=== PATIENT | female | born 1930 | race Caucasian/White ===

== ENCOUNTER 2017-02-22 18:05 | Inpatient (IN) | payer OTHER, MEDICAID ==
[~2017-02-22] VITALS: Ht 170.2 cm; Wt 86.7 kg
[~2017-02-22 18:05] MED LIST: ASPI-231 PO; CALC-30 PO; CHOL10006 PO; CLOP75TA28 PO; DEXL60CA3 PO; FERR325T47 PO; INSU70IN9 SC; ISOS10TA45 PO; LATA0.00 EACHEYE; LEVO75TA6 PO; NYS15PW TOP; TRAM50TA2 PO
[2017-02-22 19:03] LABS: Basophils # (auto) 0 uL; Basophils % (auto) 0.3 % (0.0-2.0); CONDITION Y; Eosinophils # (auto) 0.1 uL; Eosinophils % (auto) 0.8 % (0.0-7.0); Hematocrit 35.7 % (36.0-46.0); Hemoglobin 11.9 g/dL (12.2-16.2); Lymphocytes # (auto) 3.4 uL; Mean Corpuscular Hemoglobin 29.4 pg (28.0-32.0); Mean Corpuscular Hgb Conc. 33.2 g/dL (32.0-36.0); Mean Corpuscular Volume 88.5 fL (80.0-100.0); Mean Platelet Volume 8.4 fL (7.4-10.4); Monocytes # (auto) 0.9 uL; Monocytes % (auto) 6.9 % (0.0-12.0); Neutrophils # (auto) 8.5 uL; Platelet Count (auto) 254 10^3/uL (140-450); Red Cell Distribution Width 16.7 % (11.6-16.0); White Blood Cell 12.9 10^3/uL (4.4-10.8)
[2017-02-22] MEDS ORDERED: SODIUM CHLORIDE 0.9% 1,000 ML IV ONE (19:33)
[2017-02-22 19:41] LABS: Chloride 116 mmol/L (98-107); Potassium 4.1 mmol/L (3.5-5.1); Sodium 142 mmol/L (136-145)
[2017-02-22 19:45] LABS: Albumin 3.1 g/dL (3.4-5.0); Anion Gap 12 (5-15); Aspartate Aminotransferase 44 U/L (15-37); BUN/Creatinine Ratio 15.6; Blood Urea Nitrogen 41 mg/dL (7-18); Calcium 8.1 mg/dL (8.5-10.1); Carbon Dioxide 14 mmol/L (21-32); GFR African American 22 mL/min; GFR Non-African American 18 mL/min; Glucose 164 mg/dL (74-106)
[2017-02-22] MEDS ORDERED: IPRATROPIUM BROM 0.5 MG/2.5ML INH SOL HHN ONE (19:45)
[2017-02-22] MEDS: LEVOFLOXACIN 500MG 100 ML IV ONE (19:45)
[2017-02-22] MEDS ORDERED: ALBUTEROL SULF 2.5 MG/0.5ML(0.5%) NEB SOLN HHN ONE (19:45)
[2017-02-22 19:47] LABS: Alkaline Phosphatase 129 U/L (45-117); Bilirubin, Total 0.6 mg/dL (0.2-1.0); Total Protein 6.9 g/dL (6.4-8.2)
[2017-02-22 20:13] LABS: B-Type Natriuretic Peptide 979.49 pg/mL (0-100)
[2017-02-22 20:19] LABS: Temperature: 23.1 C (20.0-25.0)
[2017-02-22 20:23] LABS: Allen Test Yes; Base Excess -10.9 mmol/L (-2.0-2.0); Blood 02Sat 93.8 % (96-100); Blood COHb 0.4 % (0.5-1.5); Blood MetHb 0.1 % (0.0-1.5); HCO3 12.6 mmol/L (22-26.0); HHb 6.2 % (0.0-5.0); MODE NASAL CANNULA; O2Hb 93.3 % (94.0-97.0); PCO2 22.6 mmHg (35.0-45.0); PCO2(T) 22.6 mmHg (35.0-45.0); PO2 78.6 mmHg (80.0-100.0); PO2(T) 78.6 mmHg (80.0-100.0); Sample Type Arterial; pH 7.364 (7.350-7.450)
[2017-02-22] MEDS ORDERED: LACTULOSE 20Gm/30ML SOLN PO PRN (22:15)
[2017-02-22] MEDS ORDERED: NITROGLYCERIN 0.4 MG SL TAB SL PRN (22:15)
[2017-02-22] MEDS ORDERED: ENOXAPARIN SOD 120 MG/0.8 ML SYRINGE SC ONE (22:15)
[2017-02-22] MEDS ORDERED: AZITHROMYCIN 500MG/D5W 250ML 250 ML IV ONE (22:15)
[2017-02-22] MEDS ORDERED: methylPREDNISolone SOD SUCC 40 MG/ML VL IV SCH (22:15)
[2017-02-22] MEDS ORDERED: MORPHINE SULF INJ 2 MG/ML SYRINGE 1ML IV PRN (22:15)
[2017-02-22] MEDS ORDERED: FUROSEMIDE 40 MG/4 ML VIAL IV ONE (22:15)
[2017-02-22] MEDS ORDERED: DEXTROSE (50%) 50ML SYRG IV PRN (22:30)
[2017-02-22] MEDS ORDERED: VANCOMYCIN PER PHARMACY 0 MG IV SCH (22:45)
[2017-02-22] MEDS ORDERED: VANCOMYCIN 1GM/250ML D5W 250 ML IV ONE (22:45)
[2017-02-22] MEDS: InsuLIN REG 1unit/0.01ml Soln (100units/ml) SC SCH (23:09)
[2017-02-22] MEDS: ACCU-CHEK COMFORT CURVE STRIP VI SCH (23:09)
[2017-02-22] MEDS ORDERED: diphenhdrAMINE HCL 50 MG/1 ML VL ONE (23:48)
[2017-02-23] MEDS ORDERED: FAMOTIDINE (10MG/ML) 2ML VL IV ONE
[2017-02-23] MEDS ORDERED: diphenhdrAMINE HCL 50 MG/1 ML VL IV ONE
[2017-02-23] MEDS: IPRATROPIUM BROM 0.5 MG/2.5ML INH SOL NEB SCH ×2 (02:05→06:04)
[2017-02-23] MEDS: ALBUTEROL SULF 2.5 MG/0.5ML(0.5%) NEB SOLN NEB SCH ×2 (02:05→06:04)
[2017-02-23 03:34] VITALS: BP 157/62
[2017-02-23] MEDS: InsuLIN REG 1unit/0.01ml Soln (100units/ml) SC SCH ×4 (06:00→23:28)
[2017-02-23] MEDS: ACCU-CHEK COMFORT CURVE STRIP VI SCH ×4 (06:00→23:19)
[2017-02-23 06:28] LABS: Basophils # (auto) 0 uL; Basophils % (auto) 0.1 % (0.0-2.0); CONDITION Y; Eosinophils # (auto) 0 uL; Hematocrit 35.2 % (36.0-46.0); Hemoglobin 11.5 g/dL (12.2-16.2); Lymphocytes % (auto) 8.8 % (10.0-50.0); Mean Corpuscular Hemoglobin 28.9 pg (28.0-32.0); Mean Corpuscular Hgb Conc. 32.6 g/dL (32.0-36.0); Mean Corpuscular Volume 88.8 fL (80.0-100.0); Mean Platelet Volume 8.7 fL (7.4-10.4); Monocytes # (auto) 0.1 uL; Monocytes % (auto) 0.9 % (0.0-12.0); Neutrophils # (auto) 9.9 uL; Neutrophils % (auto) 90.2 % (37.0-80.0); Platelet Count (auto) 236 10^3/uL (140-450); Red Cell Distribution Width 17.3 % (11.6-16.0); White Blood Cell 10.9 10^3/uL (4.4-10.8)
[2017-02-23] MEDS: LEVOTHYROXINE SODIUM 100 MCG TAB PO SCH (06:45)
[2017-02-23 06:53] LABS: Albumin 3.3 g/dL (3.4-5.0); BUN/Creatinine Ratio 14.8; Bilirubin, Total 0.6 mg/dL (0.2-1.0); Calcium 8.6 mg/dL (8.5-10.1); Total Protein 7.3 g/dL (6.4-8.2)
[2017-02-23 08:06] LABS: B-Type Natriuretic Peptide 1583.67 pg/mL (0-100)
[2017-02-23 08:11] LABS: Temperature: 24.5 C (20.0-25.0)
[2017-02-23] MEDS: FERROUS SULFATE 325 MG TAB PO SCH ×2 (08:30→17:16)
[2017-02-23] MEDS: PANTOPRAZOLE 40 MG/10 ML VIAL IV SCH (08:30)
[2017-02-23] MEDS: CLOPIDOGREL BISULFATE 75 MG TAB PO SCH (08:31)
[2017-02-23] MEDS: ASPirin 81 mg TAB PO SCH (08:31)
[2017-02-23] MEDS: METOPROLOL TARTRATE 25 MG TAB PO SCH ×2 (08:32→21:30)
[2017-02-23] MEDS: AZITHROMYCIN 500MG/D5W 250ML 250 ML IV SCH (08:32)
[2017-02-23] MEDS ORDERED: POTASSIUM CHL 20 Meq TABLET PO ONE (09:45)
[2017-02-23] MEDS ORDERED: FUROSEMIDE 100 MG/10ML VIAL IV ONE (09:45)
[2017-02-23] MEDS ORDERED: FUROSEMIDE 40 MG/4 ML VIAL IV SCH ×2 (10:00→22:00)
[2017-02-23] MEDS ORDERED: amLODIPine BESYLATE 5 MG TAB PO SCH (10:00)
[2017-02-23 15:01] VITALS: BP 153/79
[2017-02-23] MEDS ORDERED: FER325T PO (15:20)
[2017-02-23] MEDS ORDERED: INS7030I SC (15:25)
[2017-02-23] MEDS ORDERED: ISOS30TA4 PO (15:26)
[2017-02-23] MEDS ORDERED: TRAM50TA2 PO (15:27)
[2017-02-23] MEDS: FUROSEMIDE 40 MG/4 ML VIAL IV SCH (21:29)
[2017-02-23] MEDS: ATORVASTATIN 20 MG TAB PO SCH (21:29)
[2017-02-23 21:30] VITALS: BP 149/58
[2017-02-23] MEDS: ENOXAPARIN SOD 120 MG/0.8 ML SYRINGE SC SCH (23:19)
[2017-02-24 04:49] VITALS: BP 135/66
[2017-02-24] MEDS: FUROSEMIDE 40 MG/4 ML VIAL IV SCH ×2 (05:55→17:48)
[2017-02-24] MEDS: ACCU-CHEK COMFORT CURVE STRIP VI SCH ×4 (05:55→21:57)
[2017-02-24] MEDS: InsuLIN REG 1unit/0.01ml Soln (100units/ml) SC SCH ×4 (06:10→22:15)
[2017-02-24] MEDS: LEVOTHYROXINE SODIUM 100 MCG TAB PO SCH (06:10)
[2017-02-24 06:26] LABS: Basophils # (auto) 0 uL; Basophils % (auto) 0.2 % (0.0-2.0); CONDITION Y; Eosinophils # (auto) 0 uL; Eosinophils % (auto) 0.2 % (0.0-7.0); Hematocrit 32.6 % (36.0-46.0); Hemoglobin 10.8 g/dL (12.2-16.2); Lymphocytes # (auto) 2.8 uL; Lymphocytes % (auto) 16.2 % (10.0-50.0); Mean Corpuscular Hemoglobin 29.3 pg (28.0-32.0); Mean Corpuscular Volume 88.6 fL (80.0-100.0); Mean Platelet Volume 8.8 fL (7.4-10.4); Monocytes # (auto) 1.3 uL; Monocytes % (auto) 7.6 % (0.0-12.0); Neutrophils % (auto) 75.8 % (37.0-80.0); Platelet Count (auto) 240 10^3/uL (140-450); Red Cell Distribution Width 16.6 % (11.6-16.0); White Blood Cell 17.2 10^3/uL (4.4-10.8)
[2017-02-24 06:45] LABS: Calcium 8.3 mg/dL (8.5-10.1); Potassium 4.1 mmol/L (3.5-5.1)
[2017-02-24 06:48] LABS: Albumin 2.9 g/dL (3.4-5.0); BUN/Creatinine Ratio 15.5
[2017-02-24 06:50] LABS: Bilirubin, Total 0.5 mg/dL (0.2-1.0); Total Protein 6.4 g/dL (6.4-8.2)
[2017-02-24] MEDS: FERROUS SULFATE 325 MG TAB PO SCH ×2 (08:35→17:48)
[2017-02-24 09:00] VITALS: BP 138/69
[2017-02-24] MEDS: CLOPIDOGREL BISULFATE 75 MG TAB PO SCH (09:58)
[2017-02-24] MEDS: ASPirin 81 mg TAB PO SCH (09:58)
[2017-02-24] MEDS: METOPROLOL TARTRATE 25 MG TAB PO SCH ×2 (09:59→21:57)
[2017-02-24] MEDS: PANTOPRAZOLE 40 MG/10 ML VIAL IV SCH (09:59)
[2017-02-24] MEDS: AZITHROMYCIN 500MG/D5W 250ML 250 ML IV SCH (09:59)
[2017-02-24] MEDS ORDERED: DEXTROSE (50%) 50ML SYRG IV PRN (10:15)
[2017-02-24 13:20] VITALS: BP 138/69
[2017-02-24 16:58] VITALS: BP 141/63
[2017-02-24] MEDS: ATORVASTATIN 20 MG TAB PO SCH (21:57)
[2017-02-24 22:00] VITALS: BP 148/70
[2017-02-24] MEDS: ENOXAPARIN SOD 120 MG/0.8 ML SYRINGE SC SCH (23:32)
[2017-02-25 05:00] VITALS: BP 131/57
[2017-02-25] MEDS: LEVOTHYROXINE SODIUM 100 MCG TAB PO SCH (06:25)
[2017-02-25] MEDS: ACCU-CHEK COMFORT CURVE STRIP VI SCH ×4 (06:26→21:52)
[2017-02-25] MEDS: InsuLIN REG 1unit/0.01ml Soln (100units/ml) SC SCH ×4 (06:32→21:53)
[2017-02-25 06:34] LABS: Basophils # (auto) 0 uL; Basophils % (auto) 0.1 % (0.0-2.0); CONDITION Y; Eosinophils # (auto) 0.3 uL; Eosinophils % (auto) 2.2 % (0.0-7.0); Hematocrit 33.1 % (36.0-46.0); Hemoglobin 10.9 g/dL (12.2-16.2); Lymphocytes # (auto) 3.5 uL; Lymphocytes % (auto) 27.6 % (10.0-50.0); Mean Corpuscular Hemoglobin 29.4 pg (28.0-32.0); Mean Corpuscular Hgb Conc. 33.1 g/dL (32.0-36.0); Mean Corpuscular Volume 88.8 fL (80.0-100.0); Mean Platelet Volume 8.9 fL (7.4-10.4); Monocytes % (auto) 7.8 % (0.0-12.0); Neutrophils # (auto) 7.9 uL; Neutrophils % (auto) 62.3 % (37.0-80.0); Platelet Count (auto) 240 10^3/uL (140-450); Red Cell Distribution Width 16.7 % (11.6-16.0); White Blood Cell 12.7 10^3/uL (4.4-10.8)
[2017-02-25 06:58] LABS: Potassium 3.7 mmol/L (3.5-5.1)
[2017-02-25 07:09] LABS: BUN/Creatinine Ratio 17.9; Calcium 8.5 mg/dL (8.5-10.1)
[2017-02-25] MEDS: FUROSEMIDE 40 MG/4 ML VIAL IV SCH ×2 (07:16→18:29)
[2017-02-25] MEDS: FERROUS SULFATE 325 MG TAB PO SCH ×2 (08:31→18:29)
[2017-02-25 09:00] VITALS: BP 136/68
[2017-02-25] MEDS: CLOPIDOGREL BISULFATE 75 MG TAB PO SCH (10:01)
[2017-02-25] MEDS: ASPirin 81 mg TAB PO SCH (10:02)
[2017-02-25] MEDS: METOPROLOL TARTRATE 25 MG TAB PO SCH ×2 (10:02→21:51)
[2017-02-25] MEDS: PANTOPRAZOLE 40 MG/10 ML VIAL IV SCH (10:02)
[2017-02-25] MEDS: AZITHROMYCIN 500MG/D5W 250ML 250 ML IV SCH (10:03)
[2017-02-25 13:00] VITALS: BP 126/55
[2017-02-25 17:00] VITALS: BP 122/89
[2017-02-25] MEDS: ATORVASTATIN 20 MG TAB PO SCH (21:50)
[2017-02-25] MEDS: APIXABAN 2.5 MG TAB PO SCH (21:52)
[2017-02-25 22:00] VITALS: BP 155/64
[2017-02-26 05:00] VITALS: BP 130/61
[2017-02-26] MEDS: FUROSEMIDE 40 MG/4 ML VIAL IV SCH ×2 (06:26→18:18)
[2017-02-26] MEDS: LEVOTHYROXINE SODIUM 100 MCG TAB PO SCH (06:29)
[2017-02-26 06:40] LABS: Basophils # (auto) 0 uL; Basophils % (auto) 0.4 % (0.0-2.0); CONDITION Y; Eosinophils # (auto) 0.2 uL; Eosinophils % (auto) 2.7 % (0.0-7.0); Hematocrit 34.5 % (36.0-46.0); Hemoglobin 11.4 g/dL (12.2-16.2); Lymphocytes # (auto) 2.3 uL; Lymphocytes % (auto) 28.1 % (10.0-50.0); Mean Corpuscular Hemoglobin 29.1 pg (28.0-32.0); Mean Corpuscular Hgb Conc. 32.9 g/dL (32.0-36.0); Mean Corpuscular Volume 88.5 fL (80.0-100.0); Mean Platelet Volume 8.6 fL (7.4-10.4); Monocytes # (auto) 0.6 uL; Neutrophils # (auto) 4.9 uL; Neutrophils % (auto) 60.8 % (37.0-80.0); Platelet Count (auto) 249 10^3/uL (140-450); Red Cell Distribution Width 16.6 % (11.6-16.0); White Blood Cell 8.1 10^3/uL (4.4-10.8)
[2017-02-26 07:18] LABS: Potassium 3.4 mmol/L (3.5-5.1)
[2017-02-26 07:42] LABS: BUN/Creatinine Ratio 18.5; Calcium 8.5 mg/dL (8.5-10.1)
[2017-02-26] MEDS: InsuLIN REG 1unit/0.01ml Soln (100units/ml) SC SCH ×4 (07:53→21:35)
[2017-02-26] MEDS: ACCU-CHEK COMFORT CURVE STRIP VI SCH ×4 (07:53→21:35)
[2017-02-26 09:00] VITALS: BP 140/61
[2017-02-26] MEDS: ASPirin 81 mg TAB PO SCH (09:24)
[2017-02-26] MEDS: FERROUS SULFATE 325 MG TAB PO SCH ×2 (09:24→18:19)
[2017-02-26] MEDS: APIXABAN 2.5 MG TAB PO SCH ×2 (09:24→21:34)
[2017-02-26] MEDS: AZITHROMYCIN 500MG/D5W 250ML 250 ML IV SCH (09:24)
[2017-02-26] MEDS: PANTOPRAZOLE 40 MG/10 ML VIAL IV SCH (09:24)
[2017-02-26] MEDS: METOPROLOL TARTRATE 25 MG TAB PO SCH ×2 (09:25→21:34)
[2017-02-26 13:04] VITALS: BP 136/71
[2017-02-26 17:00] VITALS: BP 114/69
[2017-02-26] MEDS: ATORVASTATIN 20 MG TAB PO SCH (21:34)
[2017-02-26 21:41] VITALS: BP 150/66
[2017-02-27] MEDS: FUROSEMIDE 40 MG/4 ML VIAL IV SCH ×2 (05:54→18:26)
[2017-02-27 05:55] VITALS: BP 171/62
[2017-02-27] MEDS: InsuLIN REG 1unit/0.01ml Soln (100units/ml) SC SCH ×4 (06:27→22:09)
[2017-02-27] MEDS: ACCU-CHEK COMFORT CURVE STRIP VI SCH ×4 (06:27→22:10)
[2017-02-27] MEDS: LEVOTHYROXINE SODIUM 100 MCG TAB PO SCH (06:27)
[2017-02-27 06:59] LABS: Basophils # (auto) 0 uL; Basophils % (auto) 0.3 % (0.0-2.0); CONDITION Y; Eosinophils # (auto) 0.2 uL; Eosinophils % (auto) 2.4 % (0.0-7.0); Hematocrit 37.7 % (36.0-46.0); Hemoglobin 12.4 g/dL (12.2-16.2); Lymphocytes # (auto) 3.5 uL; Lymphocytes % (auto) 35.3 % (10.0-50.0); Mean Corpuscular Hemoglobin 28.9 pg (28.0-32.0); Mean Corpuscular Volume 87.7 fL (80.0-100.0); Monocytes % (auto) 10.1 % (0.0-12.0); Neutrophils # (auto) 5.1 uL; Neutrophils % (auto) 51.9 % (37.0-80.0); Platelet Count (auto) 274 10^3/uL (140-450); Red Cell Distribution Width 16.4 % (11.6-16.0); White Blood Cell 9.9 10^3/uL (4.4-10.8)
[2017-02-27 07:18] LABS: BUN/Creatinine Ratio 19.7; Calcium 8.7 mg/dL (8.5-10.1); Potassium 3.2 mmol/L (3.5-5.1)
[2017-02-27 08:56] VITALS: BP_SYST 75
[2017-02-27] MEDS: PANTOPRAZOLE 40 MG/10 ML VIAL IV SCH (10:14)
[2017-02-27] MEDS: ASPirin 81 mg TAB PO SCH (10:15)
[2017-02-27] MEDS: FERROUS SULFATE 325 MG TAB PO SCH ×2 (10:16→18:26)
[2017-02-27] MEDS: APIXABAN 2.5 MG TAB PO SCH ×2 (10:16→22:09)
[2017-02-27] MEDS: METOPROLOL TARTRATE 25 MG TAB PO SCH ×2 (10:16→22:09)
[2017-02-27 10:42] VITALS: BP 143/75
[2017-02-27 12:00] VITALS: BP 135/61
[2017-02-27 16:00] VITALS: BP 131/51
[2017-02-27 22:00] VITALS: BP 145/65
[2017-02-27] MEDS: ATORVASTATIN 20 MG TAB PO SCH (22:09)
[2017-02-28 05:30] VITALS: BP 154/71
[2017-02-28] MEDS: FUROSEMIDE 40 MG/4 ML VIAL IV SCH (06:14)
[2017-02-28] MEDS: LEVOTHYROXINE SODIUM 100 MCG TAB PO SCH (06:49)
[2017-02-28] MEDS: ACCU-CHEK COMFORT CURVE STRIP VI SCH ×2 (06:49→11:30)
[2017-02-28] MEDS: InsuLIN REG 1unit/0.01ml Soln (100units/ml) SC SCH ×2 (06:50→11:30)
[2017-02-28 07:55] VITALS: BP 158/60
[2017-02-28] MEDS: APIXABAN 2.5 MG TAB PO SCH (09:31)
[2017-02-28] MEDS: ASPirin 81 mg TAB PO SCH (09:31)
[2017-02-28] MEDS: FERROUS SULFATE 325 MG TAB PO SCH (09:31)
[2017-02-28] MEDS: PANTOPRAZOLE 40 MG/10 ML VIAL IV SCH (09:32)
[2017-02-28] MEDS: METOPROLOL TARTRATE 25 MG TAB PO SCH (09:37)
[2017-02-28 11:46] VITALS: BP_SYST 136; BP_SYST 147; BP_DIAS 58; BP_DIAS 86
== END 2017-02-28 16:45 | disposition home or self-care (01) | DRG 291 ==
LOC: EDBD 18:05 → ER 18:07 → TELE 18:08 → TELE-EAST 02-23 13:52
PROVIDERS: ADMIT Family Medicine; ATTEND Family Medicine
DX: I13.2 Hypertensive heart and chronic kidney disease with heart failure and with stage 5 chronic kidney disease, or end stage renal disease (principal); I50.33 Acute on chronic diastolic (congestive) heart failure; N17.9 Acute kidney failure, unspecified; E11.22 Type 2 diabetes mellitus with diabetic chronic kidney disease; E11.51 Type 2 diabetes mellitus with diabetic peripheral angiopathy without gangrene; I49.5 Sick sinus syndrome; N18.6 End stage renal disease; E11.65 Type 2 diabetes mellitus with hyperglycemia; E66.01 Morbid (severe) obesity due to excess calories; I07.1 Rheumatic tricuspid insufficiency; J44.9 Chronic obstructive pulmonary disease, unspecified; I25.10 Atherosclerotic heart disease of native coronary artery without angina pectoris; D63.8 Anemia in other chronic diseases classified elsewhere; E03.9 Hypothyroidism, unspecified; E78.5 Hyperlipidemia, unspecified; I48.91 Unspecified atrial fibrillation; Z82.49 Family history of ischemic heart disease and other diseases of the circulatory system; Z83.3 Family history of diabetes mellitus; Z95.0 Presence of cardiac pacemaker; Z98.61 Coronary angioplasty status; Z90.49 Acquired absence of other specified parts of digestive tract; Z90.710 Acquired absence of both cervix and uterus; Z98.49 Cataract extraction status, unspecified eye; Z88.1 Allergy status to other antibiotic agents; Z88.0 Allergy status to penicillin; Z88.7 Allergy status to serum and vaccine; Z88.8 Allergy status to other drugs, medicaments and biological substances; Z91.018 Allergy to other foods; Z68.29 Body mass index [BMI] 29.0-29.9, adult; Z79.82 Long term (current) use of aspirin; Z79.899 Other long term (current) drug therapy
CPT/HCPCS: 36415; 36600; 71010; 80048; 80053; 80061; 80202; 82805; 82962; 83036; 83605; 83880; 84484; 85025; 85379; 87040; 93005; 93306; 93970; 94640; 96361; 96365; 96366; 96368; 96375; 96376; 99291; C9113; J1815; J1956

== ENCOUNTER 2017-09-06 09:09 | Emergency (ER) | payer OTHER, MEDICAID ==
[~2017-09-06] VITALS: Ht 157.5 cm; Wt 70.3 kg
[~2017-09-06 09:09] MED LIST changes: -CLOP75TA28 PO; +FER325T PO; -FERR325T47 PO; +INS7030I SC; -INSU70IN9 SC; -ISOS10TA45 PO; +ISOS30TA4 PO; -LATA0.00 EACHEYE; +LATA0.0020 EACHEYE
[2017-09-06 10:12] LABS: Basophils # (auto) 0.1 uL; Basophils % (auto) 0.5 % (0.0-2.0); Eosinophils # (auto) 0.1 uL; Eosinophils % (auto) 1.4 % (0.0-7.0); Hematocrit 38.1 % (36.0-46.0); Hemoglobin 12.6 g/dL (12.2-16.2); Lymphocytes # (auto) 3.4 uL; Lymphocytes % (auto) 31.8 % (10.0-50.0); Mean Corpuscular Hgb Conc. 33.1 g/dL (32.0-36.0); Mean Corpuscular Volume 90.6 fL (80.0-100.0); Monocytes # (auto) 0.9 uL; Monocytes % (auto) 8.5 % (0.0-12.0); Neutrophils # (auto) 6.3 uL; Neutrophils % (auto) 57.8 % (37.0-80.0); Platelet Count (auto) 197 10^3/uL (140-450); Red Blood Cells 4.21 10^6/uL (4.0-5.20); Red Cell Distribution Width 16.3 % (11.8-14.3); White Blood Cell 10.8 10^3/uL (4.4-10.8)
[2017-09-06 10:25] LABS: INR 1.08 (0.9-1.15); Partial Thromboplastin Time 36.2 sec (22.64-33.71); Prothrombin Time 11.8 sec (9.37-12.3)
[2017-09-06 10:39] LABS: Albumin 3.6 g/dL (3.4-5.0); BUN/Creatinine Ratio 27.5; Calcium 8.9 mg/dL (8.5-10.1); Potassium 3.4 mmol/L (3.5-5.1)
[2017-09-06 10:41] LABS: Bilirubin, Total 0.6 mg/dL (0.2-1.0); Total Protein 7.5 g/dL (6.4-8.2)
[2017-09-06 12:30] VITALS: BP 173/69
[2017-09-06] MEDS ORDERED: METOPROLOL TARTRATE 25 MG TAB PO ONE (13:00)
[2017-09-06] MEDS ORDERED: PHYTONADIONE (VIT K)10 MG/ML 1ML VIAL SUBCUT ONE (13:00)
== END 2017-09-06 14:03 | disposition home or self-care (01) ==
LOC: EDBD 09:09 → ER 09:09
DX: R04.0 Epistaxis (principal); E11.22 Type 2 diabetes mellitus with diabetic chronic kidney disease; I12.9 Hypertensive chronic kidney disease with stage 1 through stage 4 chronic kidney disease, or unspecified chronic kidney disease; N18.9 Chronic kidney disease, unspecified; E78.5 Hyperlipidemia, unspecified; I25.2 Old myocardial infarction; E07.9 Disorder of thyroid, unspecified; Z90.710 Acquired absence of both cervix and uterus; Z90.49 Acquired absence of other specified parts of digestive tract; Z95.0 Presence of cardiac pacemaker; Z79.82 Long term (current) use of aspirin; Z88.8 Allergy status to other drugs, medicaments and biological substances; Z88.6 Allergy status to analgesic agent; Z88.1 Allergy status to other antibiotic agents; Z79.4 Long term (current) use of insulin
CPT/HCPCS: 36415; 80053; 82962; 85025; 85610; 85730; 96372; 99284; J3430

== ENCOUNTER → 2018-03-18 | Outpatient (CLI) | payer OTHER, MEDICAID ==
[2018-03-18 09:14] LABS: Basophils # (auto) 0.1 uL; Basophils % (auto) 0.5 % (0.0-2.0); Eosinophils # (auto) 0.1 uL; Eosinophils % (auto) 1.1 % (0.0-7.0); Hematocrit 40.5 % (36.0-46.0); Hemoglobin 13.1 g/dL (12.2-16.2); Lymphocytes # (auto) 3.9 uL; Mean Corpuscular Hemoglobin 30.3 pg (28.0-32.0); Mean Corpuscular Hgb Conc. 32.3 g/dL (32.0-36.0); Mean Corpuscular Volume 93.7 fL (80.0-100.0); Monocytes # (auto) 0.9 uL; Monocytes % (auto) 7.9 % (0.0-12.0); Neutrophils # (auto) 6.1 uL; Neutrophils % (auto) 55.5 % (37.0-80.0); Nucleated Red Blood Cells % 0.1 %; Platelet Count (auto) 207 10^3/uL (140-450); Red Blood Cells 4.33 10^6/uL (4.0-5.20); Red Cell Distribution Width 15.9 % (11.8-14.3)
[2018-03-18 09:32] LABS: Albumin 3.4 g/dL (3.4-5.0); BUN/Creatinine Ratio 19.9; Bilirubin, Total 0.4 mg/dL (0.2-1.0); Calcium 8.8 mg/dL (8.5-10.1); Potassium 3.5 mmol/L (3.5-5.1); Total Protein 7.7 g/dL (6.4-8.2)
[2018-03-18 09:40] LABS: Urine Bacteria FEW /hpf (None Seen); Urine Blood Negative /uL (Negative); Urine Mucus FEW (None Seen); Urine Specific Gravity 1.011 (1.001-1.035); Urine WBC 43 /hpf (0 - 5)
== END | disposition home or self-care (01) ==
LOC: LAB 08:22
PROVIDERS: ATTEND Family Medicine
DX: I11.0 Hypertensive heart disease with heart failure (principal); I50.22 Chronic systolic (congestive) heart failure; E11.9 Type 2 diabetes mellitus without complications; E03.9 Hypothyroidism, unspecified; Z95.0 Presence of cardiac pacemaker; Z88.1 Allergy status to other antibiotic agents; Z88.4 Allergy status to anesthetic agent
CPT/HCPCS: 36415; 80053; 80061; 81001; 82043; 82306; 82607; 83036; 84443; 85025

== ENCOUNTER 2018-07-09 16:54 | Inpatient (IN) | payer OTHER, MEDICAID | END 2018-07-13 12:06 | disposition home or self-care (01) | LOC: ER 16:54 → TELE 20:39 → TELE-EAST 21:30 | DX: J18.1 Lobar pneumonia, unspecified organism (principal); I50.43 Acute on chronic combined systolic (congestive) and diastolic (congestive) heart failure; N18.4 Chronic kidney disease, stage 4 (severe); I25.110 Atherosclerotic heart disease of native coronary artery with unstable angina pectoris; I13.0 Hypertensive heart and chronic kidney disease with heart failure and stage 1 through stage 4 chronic kidney disease, or unspecified chronic kidney disease ==